=== PATIENT | male | born 1995 | race Caucasian/White ===

== ENCOUNTER 2017-04-06 21:51 | Emergency (ER) | payer OTHER ==
[~2017-04-06] VITALS: Ht 167.6 cm; Wt 52.2 kg
[~2017-04-06 21:51] MED LIST: MOTRIN800 MG PO; NKHM
[2017-04-06] MEDS ORDERED: CYCLOBENZAPRINE5 M3 PO (22:31)
[2017-04-06] MEDS ORDERED: Motrin,Rufen800 MG PO (22:31)
== END 2017-04-06 23:28 | disposition home or self-care (01) ==
LOC: ED 21:51
DX: S46.811A Strain of other muscles, fascia and tendons at shoulder and upper arm level, right arm, initial encounter (principal); M54.2 Cervicalgia; F17.200 Nicotine dependence, unspecified, uncomplicated; Z90.89 Acquired absence of other organs; X58.XXXA Exposure to other specified factors, initial encounter; Y93.89 Activity, other specified; Y92.89 Other specified places as the place of occurrence of the external cause; Y99.9 Unspecified external cause status